=== PATIENT | male | born 1985 | race Two or more races ===

== ENCOUNTER 2024-05-14 09:17 | Outpatient (AMB) | payer SELFPAY ==
--- NOTE | 2024-05-14 09:21 | MHC.OFFWIV ---
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 Patient Tobacco Use Status: Never used Tobacco Allergies No Known Allergies Allergy (Verified 05/14/24 09:25) Do you need a note to return to daycare/school/sports/work: No HPI HPI Comments History of Present Illness Details Patient is a 39-year-old male here with a friend who is interpreting for him. They state he has had a lesion on his lower lip for 1 month. They state they have tried applying different kinds of ointments on it with no relief. They are not sure which ointments. They state that it never gets better and it has been in the same spot; it just crust and bleeds and then crust and bleeds. He states it is not painful nor is it itchy. He has never had anything like this in the past. Denies using tobacco, smoking or chewing. PFSH Social History Patient Tobacco Use Status: Never used Tobacco Review of Systems Const All systems reviewed & are unremarkable except as noted in HPI and below Physical Exam Vital Signs: Last Vital Signs Temp 98.6 F 05/14/24 09:23 Pulse 84 05/14/24 09:23 BP 140/90 H 05/14/24 09:23 Pulse Ox 97 05/14/24 09:23 Oxygen Delivery Method Room Air 05/14/24 09:23 BMI result Body Mass Index 30.4 Const General: cooperative, healthy appearing, comfortable, no acute distress and well developed Orientation/consciousness: patient oriented x3 Limitations: no limitations HEENT Head: Yes normal to inspection Ears: hearing grossly normal bilaterally General nose exam: Normal external nose present Face and sinus: Yes normal facial exam Mouth/tongue images: 1. 0.5cm raised, erythematous/white/black lesion actively bleeding when touched Eyes General: appearance normal, both eyes and all related structures Neck Neck: Yes normal visual inspection and Yes full ROM Resp Effort & Inspection: normal respiratory effort and able to speak in complete sentences Skin General skin exam: no rashes or lesions noted Neuro General: patient oriented x3 Extrem General: Yes normal to inspection Assessment & Plan Assessment & Plan (1) Lesion of lip: Code(s): K13.0 - Diseases of lips Plan: This does not appear to be a cold sore or a mucocelle. Will send derm referral. Plan see above Orders: Referrals Dermatology Referral K13.0 - Diseases of lips Coding Level of Care Code Est Pt Level 3 (70444) Diagnoses Lesion of lip K13.0
[2024-05-14 09:23] VITALS: BP 140/90; PULSE 84; TEMP 37; O2SAT 97; BMI 30.4
== END 2024-05-14 09:59 | disposition home or self-care (01) ==
PROVIDERS: PCP Nurse Practitioner Family; Visit Provider Physician Assistant
DX: K13.0 Diseases of lips (principal)
CPT/HCPCS: 99213

== ENCOUNTER 2024-08-06 11:43 | Outpatient (AMB) | payer OTHER, SELFPAY ==
[2024-08-06 11:47] VITALS: BP 122/80; PULSE 76; O2SAT 98; BMI 30.8
--- NOTE | 2024-08-06 11:47 | A.OFFPC_ITS ---
Vital Signs 08/06/24 11:47 Height 5 ft 11 in Weight 221 lb BMI 30.8 BP 122/80 Blood Pressure Location Rt brachial Position Sitting Pulse 76 Pulse Source Pulse Oximeter Pulse Oximetry (%) 98 Intake Visit Reasons: Est care HTN/discuss sleep study Intake Note: pt is here for establish care, would like referral for sleep study Specialist Physicians Required: Yes Specialist Physicians Language: Nigerian Information Interpreted: non-clinical & clinical Accompanied by: Self / Same As Patient Allergies No Known Allergies Allergy (Verified 08/06/24 11:48) Medication List - Last Reconciled 08/06/24 by DARY uHber No Known Home Meds Tobacco use date assessed: 08/06/24 Dental Screening Dental Screen Date: 08/06/24 Did you have a dental visit in the last 12 months?: Yes Did you have a dental problem in the last 6 months where you did not have access to dental care?: No Was dental information given to patient?: Patient has dentist HPI Est care HTN/discuss sleep study HPI Details New pt is here to establish care. 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 Pt's is accompanying him today. HTN: Blood pressure is stable today. Will have pt's monitor his BP at home. Will order labs. Denies chest pain, shortness of breath, headache, dizziness, and blurred vision. Pt reports an external lesion to his anus x3 months. He does report pain with defecation but no bleeding. ? hemorrhoid vs cystic lesion. Will send hydrocortisone cream. Will also refer to general surgery. Pt has a hx of elevated PSA. He has a family hx of prostate cancer (uncles). Will order PSA. Denies dribbling with urination, weak stream, and frequent nocturia. Pt has a hx of sleep apnea, will refer for sleep study. [facility] Surgical History No pertinent past surgical history Family History Mother Diabetes High blood pressure Father Diabetes High blood pressure Social History Housing: House Alcohol intake: never Patient Tobacco Use Status: Never used Tobacco e-Cigarette/Vaping Use: Never Used Second Hand Smoke Exposure: No service: No Current occupational status: employed and unemployed Current occupational exposures/hazards: No Cognitive needs: No Hearing needs: No Vision needs: No Questionnaire PHQ-9 Over the last 2 weeks, how often have you been bothered by any of the following problems? 1. Little interest or pleasure in doing things: not at all 2. Feeling down, depressed, or hopeless: not at all 3. Trouble falling or staying asleep, or sleeping too much: not at all 4. Feeling tired or having little energy: not at all 5. Poor appetite or overeating: not at all 6. Feeling bad about yourself - or that you are a failure or have let yourself or your family down: not at all 7. Trouble concentrating on things, such as reading the newspaper or watching television: not at all 8. Moving or speaking so slowly that other people could have noticed. Or the opposite - being so fidgety or restless that you have been moving around a lot more than usual: not at all 9. Thoughts that you would be better off or of hurting yourself in some way: not at all Total score: 0 Depression Screening Interpretation: Negative Depression Screening Done: Yes 61411 - PHQ-9 Billing: Yes Source: Developed by Drs. Donnie Sanchez, Josee Crisostomo, Jean Fernandez and colleagues, with an educational anamaria from [email or web address]. Thrive Questionnaire Date Thrive assessed: 08/06/24 I am a: Patient What is your living situation today?: I have a steady place to live Within the past 12 months, did the food you bought not last and you didn't have the money to get more?: Never true Within the past 12 months, did you worry whether your food would run out before you got money to buy more?: Never true Do you have trouble paying for medicines?: No Do you have trouble getting transportation to medical appointments?: No Do you have trouble paying your heating and electricity bill?: No Do you have trouble taking care of your child, family member or friend?: No Do you have trouble with day-to-day activities such as bathing, preparing meals, shopping, managing finances, etc.?: No Are you currently unemployed and looking for a job?: Yes Are you interested in more education?: I choose not to answer this question Please select the resources that you would like help with: None Currently or been in a relationship where the following occur: No concerns reported THRIVE Score: 0 AUDIT C Alcohol Use Questionnaire (AUDIT-C) 1. How often do you have a drink containing alcohol?: Never 3. How often do you have six or more drinks on one occasion?: Never Total Score: 0 Score Reviewed/Action Taken: Yes KARINA-7 AMB Questionnaire KARINA-7 Date KARINA - 7 assessed: 08/06/24 Feeling nervous, anxious, or on edge: 0 = Not at all Not being able to stop or control worryin = Not at all Worrying too much about different things: 0 = Not at all Trouble relaxin = Not at all Being so restless that it is hard to sit still: 0 = Not at all Becoming easily annoyed or irritable: 0 = Not at all Feeling afraid as if something awful might happen: 0 = Not at all Total KARINA-7 score (0-4 normal; 5-9 mild; 10-14 moderate; 15-21 severe): 0 Source: Developed by Drs. Donnie Sanchez, Josee Crisostomo, Jean Fernandez and colleagues, with an educational anamaria from [email or web address]. KARINA-7 Assessment Billing KARINA-7 Assessment Tool: KARINA-7 Assessment 84241 Review of Systems Const Reports as per HPI Physical exam (Primary Care) Vital Signs: Last Vital Signs Pulse 76 08/06/24 11:47 BP 122/80 08/06/24 11:47 Pulse Ox 98 08/06/24 11:47 BMI result Body Mass Index 30.8 Tobacco/Smoking Status: Tobacco use Status Tobacco use date assessed 08/06/24 08/06/24 11:49 Patient Tobacco Use Status Never used Tobacco 08/06/24 11:49 e-Cigarette/Vaping Use Never Used 08/06/24 11:49 PHQ-9: PHQ-9 Score PHQ-9: Total score 0 08/06/24 11:49 Depression Screening Interpretation: Negative Thrive Assessment: Date of Thrive Assessment Date Thrive assessed 08/06/24 08/06/24 11:49 Currently or been in a relationship where the following occur: No concerns reported Const General: cooperative Orientation/consciousness: patient oriented x3 Resp Effort & Inspection: normal respiratory effort Auscultation: clear to auscultation bilaterally Cardio Rate: regular rate Rhythm: regular rhythm Heart sounds: S1 normal heart sound present and S2 normal heart sound present GI Other: 9 o'clock position with ? large external hemorrhoid vs cystic lesion, flesh colored Neuro General: patient oriented x3 Psych Appearance: grossly normal Mental Status: mental status grossly normal Speech and movement: Normal speech and movement present Affect: normal affect Attitude: cooperative Thought process: Normal thought process present Thought content: Normal thought content present Insight: Good insight present (Psych) Judgement: Good judgement present (Psych) Coding Level of Care Code New Pt Level 3 (15458) Diagnoses HTN (hypertension) I10 Sleep apnea G47.30 Rectal lesion K62.9 Elevated prostate specific antigen (PSA) R97.20 Additional Codes KARINA-7 Assessment Billing - KARINA-7 Assessment Tool: KARINA-7 Assessment 66037 ([id number]) PHQ-9 - 47999 - PHQ-9 Billing: Yes ([id number]) Assessment & Plan Assessment & Plan (1) HTN (hypertension): Code(s): I10 - Essential (primary) hypertension Category: Medical Plan: Stable, labs ordered, pt's will take his BP at home (2) Sleep apnea: Code(s): G47.30 - Sleep apnea, unspecified Category: Medical Plan: Referred for sleep study (3) Rectal lesion: Code(s): K62.9 - Disease of anus and rectum, unspecified Category: Medical Plan: Hydrocortisone sent, referred to general surgery (4) Elevated prostate specific antigen (PSA): Code(s): R97.20 - Elevated prostate specific antigen [PSA] Category: Medical Plan: PSA ordered Plan The patient agreed to the use of a medical record retrieval specialist for this encounter. Scribed for DARY Dyson by jose alfredo Waters scribe, on 08/06/2024 at 12:45 EST. Orders: Orders Comprehensive [place]. Panel Fast Today I10 - Essential (primary) hypertension TSH reflex Free T4 Today I10 - Essential (primary) hypertension UA CC w/rflx Micro + Cult Today I10 - Essential (primary) hypertension Prostate Specific Antigen Scr Today R97.20 - Elevated prostate specific antigen [PSA] Complete Blood Count Auto Diff Today I10 - Essential (primary) hypertension Lipid Panel Today I10 - Essential (primary) hypertension Referrals Sleep Medicine Referral G47.30 - Sleep apnea, unspecified General Surgery Referral K62.9 - Disease of anus and rectum, unspecified Medications: New hydrocortisone 2.5% 1 appl NV BID-QID PRN 30 grams 0RF hemorrhoids
== END 2024-08-06 13:08 | disposition home or self-care (01) ==
PROVIDERS: PCP Nurse Practitioner Family; Visit Provider Nurse Practitioner Family
DX: I10 Essential (primary) hypertension (principal); G47.30 Sleep apnea, unspecified; K62.9 Disease of anus and rectum, unspecified; R97.20 Elevated prostate specific antigen [PSA]

== ENCOUNTER 2024-08-06 11:43 | Outpatient (REF) | payer OTHER, SELFPAY | END 2024-08-06 11:44 | disposition home or self-care (01) | LOC: HO.HMGCLDS 11:43 | PROVIDERS: PCP Nurse Practitioner Family; Visit Provider Nurse Practitioner Family | DX: I10 Essential (primary) hypertension (principal); G47.30 Sleep apnea, unspecified; K62.9 Disease of anus and rectum, unspecified; R97.20 Elevated prostate specific antigen [PSA] | CPT/HCPCS: 96127; 99202 ==

== ENCOUNTER 2024-08-07 10:37 | Outpatient (REF) | payer OTHER, SELFPAY ==
[2024-08-07 13:22] LABS: MANUAL DIFF FLAG NO
[2024-08-07 13:28] LABS: Appearance Urine Clear; Color Urine Yellow; Glucose Urine UA Negative (Negative); Leukocyte Esterase Urine Negative (Negative); Nitrite Urine Negative (Negative); PH 6.5 (5.0-9.0); Specific Gravity - Urine 1.015 (1.005-1.025); Urine Blood Negative (Negative); Urine Ketones Negative (Negative); Urine Protein Negative (Neg-Trace)
[2024-08-07 13:59] LABS: Basophils Percent Auto 0.4 % (0-2); Eosinophils Absolute Auto 0.3 X10*3/uL (0.0-0.4); Eosinophils Percent Auto 6.1 % (0-4); Hematocrit 46.6 % (42.0-52.0); Hemoglobin 16.1 g/dl (14.0-18.0); Imm Gran Abs Auto 0.01 X10*3/uL (0.00-0.03); Imm Gran Pct Auto 0.2 % (0.0-0.4); Lymphocytes Absolute Auto 2.1 X10*3/uL (1.2-4.9); Lymphocytes Percent Auto 42.9 % (20-40); Mean Corpuscular HGB Conc 34.5 g/dl (31.0-36.0); Mean Corpuscular Hemoglobin 29.8 pg (27.0-33.0); Mean Corpuscular Volume 86.3 fL (80.0-98.0); Mean Platelet Volume 9.7 fL (9.4-12.4); Monocytes Absolute Auto 0.9 X10*3/uL (0.1-1.2); Monocytes Percent Auto 18.4 % (2-11); Neutrophils Absolute Auto 1.5 x10*3/uL (2.0-8.3); Platelet Count 218 X10*3/uL (160-400); Red Cell Distribution Width 13.1 % (11.0-16.0); White Blood Count 4.8 X10*3/uL (4.8-10.8)
[2024-08-07 14:34] LABS: Albumin Level 4.5 g/dL (3.5-5.0); Alkaline Phosphatase 78 U/L (39-117); Anion Gap 8 (12-20); Aspartate Amino Transferase 28 U/L (5-37); Bilirubin Total 0.7 mg/dL (0.0-1.0); Blood Urea Nitrogen 9 mg/dL (9-16); Calcium 9.2 mg/dL (8.4-10.2); Carbon Dioxide 27 mmol/L (22-29); Chloride 105 mmol/L (96-108); Cholesterol 175 mg/dL (<200); Estimated Glomerular Filt Rate > 60; Glucose Fasting 96 mg/dL (60-99); HDL Cholesterol 29 mg/dL (>40); LDL Cholesterol Calculated 117 mg/dL (<100); Potassium 4.4 mmol/L (3.3-5.1); Sodium 136 mmol/L (135-145); TSH reflex Free T4 3.26 uIU/mL (0.32-4.0); Total Protein 7.5 g/dL (6.5-8.0); Triglycerides 148 mg/dL (<150)
[2024-08-07 15:21] LABS: Alanine Aminotransferase 38 U/L (0-40)
== END 2024-08-07 10:38 | disposition home or self-care (01) ==
LOC: HO.HMGCLDS 10:37
PROVIDERS: PCP Nurse Practitioner Family; Visit Provider Nurse Practitioner Family
DX: I10 Essential (primary) hypertension (principal); R97.20 Elevated prostate specific antigen [PSA]
CPT/HCPCS: 36415; 80053; 80061; 81003; 84153; 84443; 85025

== ENCOUNTER 2024-08-14 10:33 | Outpatient (AMB) | payer OTHER, SELFPAY ==
--- NOTE | 2024-08-14 10:38 | MHC.OFFVIS ---
Vital Signs 08/14/24 10:44 Height 5 ft 11 in Weight 220 lb BMI 30.7 BP 162/91 H Blood Pressure Location Rt brachial Position Sitting Pulse 03 L Intake Visit Reasons: Diseases of anus & rectum Intake Note: Patient referred by Dr. Oquendo for external hemorrhoids. Patient c/o: bothersome with BM. Warping Machine Operator Required: Yes Warping Machine Operator Language: Podiatric Assistant Services: Warping Machine Operator Present Warping Machine Operator Name: Kings Information Interpreted: non-clinical & clinical Accompanied by: spouse Ayaz Allergies No Known Allergies Allergy (Verified 08/14/24 10:43) HPI Comments Details: Patient presents with a significant other. He presents here with a 4 to five-month history of anorectal pain and swelling from what he describes to be a hemorrhoid. He has never had such problems before. His stool is occasionally constipated. He does strenuous activities. He has never had blood per rectum. He denies any anal receptive practice Chart was reviewed and patient evaluated [facility] Surgical History No pertinent past surgical history Family History Mother Diabetes High blood pressure Father Diabetes High blood pressure Social History (Updated 08/14/24 @ 10:44 by JESSICA Gray) Housing: House Alcohol intake: current Alcohol intake frequency: holidays/special occasions only Patient Tobacco Use Status: Never used Tobacco e-Cigarette/Vaping Use: Never Used Second Hand Smoke Exposure: No service: No Current occupational status: employed and unemployed Current occupational exposures/hazards: No Cognitive needs: No Hearing needs: No Vision needs: No Physical Exam Vital Signs: Last Vital Signs Pulse 03 L 08/14/24 10:44 BP 162/91 H 08/14/24 10:44 BMI result Body Mass Index 30.7 Const Other: Well-developed male Chest Other: Chest breath sounds bilaterally, HS 1 in 2 GI Other: Abdomen is soft, benign anorectal exam demonstrates a very large external hemorrhoid. Rectal exam was deferred secondary to patient was discomfort Assessment & Plan Assessment & Plan (1) Hemorrhoids: Code(s): K64.9 - Unspecified hemorrhoids Category: Surgical Plan I discussed with the patient therapeutic options which would including conservative therapy and topical agents or excision. Patient would like to have this removed/excised. Risks, benefits, and alternatives of hemorrhoidectomy were reviewed with the patient and included but not limited to bleeding, infection, recurrence, numbness, pain, scarring, anal incontinence and the patient wishes to proceed. All questions answered. Arrangements were made for this. Day prior he has been instructed to take a bottle of magnesium citrate so he will not need to have bowel movements with the few days postoperatively which will help alleviate his discomfort. Coding Level of Care Code New Pt Level 5 (53456) Diagnoses Hemorrhoids K64.9
[2024-08-14 10:44] VITALS: BP 162/91; PULSE 03; BMI 30.7
== END 2024-08-14 11:07 | disposition home or self-care (01) ==
PROVIDERS: PCP Nurse Practitioner Family; Referring Provider Nurse Practitioner Family; Visit Provider Surgery
DX: K64.9 Unspecified hemorrhoids (principal)
CPT/HCPCS: 99204

== ENCOUNTER → 2024-08-14 10:33 | Outpatient (BNVA) | payer OTHER, SELFPAY | PROVIDERS: PCP Nurse Practitioner Family; Referring Provider Nurse Practitioner Family; Visit Provider Surgery | DX: K64.9 Unspecified hemorrhoids (principal) | CPT/HCPCS: 99202 ==

== ENCOUNTER 2024-08-23 10:09 | Day surgery (SDC) | payer OTHER, SELFPAY ==
--- NOTE | 2024-08-22 10:19 | MHC.SHP ---
Pre-Procedural Eval Section A - 24 Hr Update-Section A only Date of Service: 08/23/24 The patient is an INPATIENT: No Changes since office visit: No Cold of Flu in the past 2 weeks, No New Medical Problems, No Changes in Medication and No Patient answered all questions Section B - Complete if H&P > 30 days Chief Complaint: Unspecified hemorrhoids Allergies: Allergies Allergy/AdvReac Type Severity Reaction Status Date / Time No Known Allergies Allergy Verified 08/14/24 10:43 Review of Systems Sugical H&P ROS: Negative: Constitution, Cardiovascular, Respiratory, Neurological, Psychiatric, Hem-Onc, Allergic/Immunologic, Gastrointestinal, Genitourinary, Musculoskeletal, Integumentary, Endocrine and Eyes/Ears/Nose/Throat Exam Surgical H&P Exam: Normal: HEENT, Normal: Heart, Normal: Lungs, Normal: Extremities, Normal: Abdomen, Normal: Skin and Normal: Neurological Plan I have reviewed the history and physical and performed a pertinent physical examination on my patient. No changes have occurred unless specified. Time Spent With Patient Time: Total time managing care of this patient today ____ minutes.
[2024-08-23 11:19] VITALS: BP 135/89; PULSE 82; RESP 14; TEMP 36.7; O2SAT 97
[2024-08-23] MEDS: Lactated Ringers 1,000 ML 100 ML IVCONT (11:33)
--- NOTE | 2024-08-23 11:45 | HO.ANESPROP2 ---
Documented by User: Leigha Bardales NP 08/21/24 15:16 HPI - Anesthesia Eval Consult details Narrative: 39yo M for Hemorrhoidectomy PMFSH Active Problems Active Problems: All Active Problems Hemorrhoids (Acute) Abnormal CBC (Acute) Elevated prostate specific antigen (PSA) (Acute) Rectal lesion (Acute) Sleep apnea (Acute) HTN (hypertension) (Acute) Lesion of lip (Acute) Past Medical History Medical History (Updated 08/21/24 @ 15:15 by Leigha Bardales NP) Sleep apnea HTN (hypertension) Family History Family History Mother Diabetes High blood pressure Father Diabetes High blood pressure Surgical History Surgical History (Updated 08/14/24 @ 11:21 by Shree Andrea MD) No pertinent past surgical history Social History Social History (Updated 08/14/24 @ 10:44 by JESSICA Gray) Housing: House Are you a primary urgent care nurse practitioner to a significant other at home: No Do you presently have visiting nurse or other home services: No Alcohol intake: current Alcohol intake frequency: does not drink Patient Tobacco Use Status: Never used Tobacco e-Cigarette/Vaping Use: Never Used Second Hand Smoke Exposure: No Use of substances other than those prescribed or required for medical reasons: No Have you been hit, kicked, punched, or otherwise hurt by someone within the past year? If so, by whom?: No Are you DNR?: No Advance Directives: No Advance Directives Information Provided: Yes Nutrition Risks: No Nutritional Risk Poor oral hygiene: No service: No Current occupational status: employed and unemployed Current occupational exposures/hazards: No Cognitive needs: No Hearing needs: No Vision needs: No Meds Allergies Allergy/AdvReac Type Severity Reaction Status Date / Time No Known Allergies Allergy Verified 08/23/24 11:16 Exam Pertinent Lab Results Pertinent Lab Results: Laboratory Tests 08/07/24 10:40 WBC 4.8 Hgb 16.1 Hct 46.6 Plt Count 218 Sodium 136 Potassium 4.4 Chloride 105 Carbon Dioxide 27 BUN 9 Creatinine 0.88 Documented by User: Lauren Jha DO 08/23/24 11:50 PMFSH Past Medical History Medical History (Updated 08/21/24 @ 15:15 by Leigha Bardales NP) Sleep apnea HTN (hypertension) Family History Family History Mother Diabetes High blood pressure Father Diabetes High blood pressure Family history of problems with anesthesia: No Surgical History Surgical History (Updated 08/14/24 @ 11:21 by Shree Andrea MD) No pertinent past surgical history History of Problems with Anesthesia: No (never had surgery) Social History Social History (Updated 08/14/24 @ 10:44 by JESSICA Gray) Housing: House Are you a primary urgent care nurse practitioner to a significant other at home: No Do you presently have visiting nurse or other home services: No Alcohol intake: current Alcohol intake frequency: does not drink Patient Tobacco Use Status: Never used Tobacco e-Cigarette/Vaping Use: Never Used Second Hand Smoke Exposure: No Use of substances other than those prescribed or required for medical reasons: No Have you been hit, kicked, punched, or otherwise hurt by someone within the past year? If so, by whom?: No Are you DNR?: No Advance Directives: No Advance Directives Information Provided: Yes Nutrition Risks: No Nutritional Risk Poor oral hygiene: No service: No Current occupational status: employed and unemployed Current occupational exposures/hazards: No Cognitive needs: No Hearing needs: No Vision needs: No Meds Allergies Allergy/AdvReac Type Severity Reaction Status Date / Time No Known Allergies Allergy Verified 08/23/24 11:16 Exam Exam Date and Time: 08/23/24 1145 Height,Weight and Vital Signs: Height 5 ft 11 in Weight 97.522 kg Vital Signs Temperature 98.1 F 08/23/24 11:19 Pulse Rate 82 08/23/24 11:19 Respiratory Rate 14 08/23/24 11:19 Blood Pressure 135/89 08/23/24 11:19 Pulse Oximetry 97 08/23/24 11:19 Oxygen Delivery Method Room Air 08/23/24 11:19 Temperature 98.1 F 08/23/24 11:19 Pulse Rate 82 08/23/24 11:19 Respiratory Rate 14 08/23/24 11:19 Blood Pressure 135/89 08/23/24 11:19 Pulse Oximetry 97 08/23/24 11:19 Oxygen Delivery Method Room Air 08/23/24 11:19 Airway Mallampati Class: I TM Dist: >3cm Neck ROM: Full Loose/Missing/Broken Teeth: Yes (several missing molars) Heart: S1S2 Lungs: CTAB Assessment and Plan Assessment Anesthesia Assessment: Anesthesia Plan Discussed and Chart Reviewed Final Anesthetic Review Family History of Problems with Anesthesia: No History of Problems with Anesthesia: No (never had surgery) NPO: Yes ASA Class: II Final Preanesthetic Review: No Changes in Pt Med Stat, Meds/Allgs Chart Reviewed, Consent Obtained/Reviewed (wind turbine mechanic at bedside for translation) and Anes Risks/Benef Reviewed Patient Risk: Low Procedure Risk: Low Anesthetic Plan Anesthetic Plan: MAC: and Agree w/ Assess. and Plan Disposition: Standard PACU
--- NOTE | 2024-08-23 12:21 | P.OP_ITS ---
Operative Note Operative Note Date of Service: 08/23/24 Narrative: Preoperative diagnosis: [] Symptomatic enlarging hemorrhoids Postop diagnosis: [] The same Procedure [] hemorrhoidectomy Surgeon: [] Emre Appointment Coordinator: [] Type of Anesthesia: MAC Indication for surgery: [] In lithotomy position large thrombosed/clot filled hemorrhoids at the 3, 7 and 11:00 o'clock positions respectively uneventfully excised using ligature device. Findings: [] Patient brought to the operating room, placed on operative table supine position, after an adequate level of MAC anesthesia was induced, anorectal area was prepped and draped in usual sterile fashion. Patient underwent infiltration of the 3 primary hemorrhoidal areas to be excised with a 1% lidocaine/0.5% Marcaine. Each was sequentially grasped, and double firing of ligature device transected and sent to pathology. Wounds were irrigated, secured hemostasis, and a Gelfoam impregnated with topical lidocaine plug was placed followed by dressing and mesh panties. Sponge, needle, and instrument counts were reported correct. Patient tolerated the procedure well and emerged from anesthesia stable condition. EBL minimal
[2024-08-23 12:23] VITALS: BP 121/76; PULSE 89; RESP 18; TEMP 36.1; O2SAT 95
[2024-08-23 12:30] VITALS: BP 119/81; PULSE 86; RESP 18; O2SAT 96
[2024-08-23 12:50] VITALS: BP 119/81; PULSE 86; RESP 18; O2SAT 96
[2024-08-23 13:05] VITALS: BP 139/96; PULSE 91; RESP 18; O2SAT 97
[2024-08-23 13:20] VITALS: BP 142/98; PULSE 89; RESP 18; TEMP 36.6; O2SAT 98
--- NOTE | 2024-08-24 12:52 | P.OP_ITS ---
Operative Note Operative Note Date of Service: 08/23/24 Narrative: Preoperative diagnosis: [] Symptomatic Postop diagnosis: [] Procedure [] Surgeon: [] Bushwalking Guide: [] Type of Anesthesia: [] Indication for surgery: [] Findings: []
== END 2024-08-23 13:55 | disposition home or self-care (01) ==
PROVIDERS: PCP Nurse Practitioner Family; Visit Provider Surgery
PROC: (CPT 46320; principal; 2024-08-23 12:50)
DX: K64.8 Other hemorrhoids (principal); K64.5 Perianal venous thrombosis; K62.9 Disease of anus and rectum, unspecified
CPT/HCPCS: 46320 ×3; 88304; J0131; J0690; J1100; J1885; J2003; J2250; J2405; J2704; J2795; J3010

== ENCOUNTER → 2024-08-23 10:09 | Outpatient (BNV) | payer OTHER, SELFPAY | PROVIDERS: PCP Nurse Practitioner Family; Visit Provider Surgery | DX: K64.9 Unspecified hemorrhoids (principal) | CPT/HCPCS: 46250 ==

== ENCOUNTER 2024-08-29 09:38 | Outpatient (AMB) | payer OTHER, SELFPAY ==
--- NOTE | 2024-08-29 10:06 | MHC.OFFWIV ---
Intake Vital Signs 08/29/24 10:07 Height 5 ft 11 in Weight 219 lb 4 oz BMI 30.6 BP 110/74 Blood Pressure Location Lt brachial Position Sitting Pulse 95 Pulse Source Pulse Oximeter Temp 97.1 F Temp Source Temporal Artery Scan Pulse Oximetry (%) 98 Oxygen Delivery Method Room Air Intake Visit Reasons: EP-hemorrhoid's sx 08/23, having pain & bleeding Intake Note: Pt presents to the office today for pain and unable to pass any stools and is having trouble urinating since his hemorrhoid surgery on 08/23/24. Pt denies any painful urination. Patient Tobacco Use Status: Never used Tobacco Tooth Cutter Clutch Name: Shakira([id number]) Allergies No Known Allergies Allergy (Verified 08/29/24 10:11) Medication List - Last Reconciled 08/29/24 by Inderjit Alvarez MD hydrocodone-acetaminophen 5-325 mg 1 tab PO Q4-6H PRN hydrocortisone 2.5% 1 appl [place] BID-QID PRN HPI EP-hemorrhoid's sx 08/23, having pain & bleeding HPI Details Chief Complaint The patient presents with postoperative anal pain, bleeding, constipation, and urinary dysurea following hemorrhoidectomy. History of Present Illness The patient is a 39-year-old male presenting with postoperative complications following a hemorrhoidectomy performed on August 23 at [facility]. Since the surgery, he has been experiencing significant anal pain, especially at night, which necessitates the use of pain medication to manage. Despite this, the effectiveness of the medication is limited, and the pain persists. He also reports persistent bleeding from the surgical site and has had difficulty with bowel movement since the operation. Constipation remains an issue despite taking Colace prescribed medications intended to alleviate it. Plan For postoperative anal pain and constipation, I will continue the current pain management strategy while possibly adjusting medications to provide better control and improve bowel motility. Stool softener changed to Senokot S1-2 tablets every night Regarding post-surgical bleeding, I will monitor for signs of excessive bleeding and assess whether adjustment in current treatment is necessary, advising the patient to maintain close follow-up. On examination he has only slight pinkish discharge. I have ordered a urinalysis to rule out urinary tract infection as a potential cause. Based on results, further evaluation or treatment may be necessary. The patient is advised to undergo a urine test next door as part of today's visit. Lastly, I will coordinate with the surgical team at [facility] to facilitate follow-up care and reassessment by the operating surgeon, ensuring continuity of postoperative management and addressing any surgical complications identified. Patient was notified he has appointment with the surgeon on of this month at 10:45 Patient speaks only Swiss, all information was taking with the help of professional test equipment mechanic. 45 minutes spent in care of this patient [facility] Medical History Sleep apnea HTN (hypertension) Surgical History No pertinent past surgical history Family History Mother Diabetes High blood pressure Father Diabetes High blood pressure Social History Housing: House Are you a primary rn care manager to a significant other at home: No Do you presently have visiting nurse or other home services: No Alcohol intake: current Alcohol intake frequency: does not drink Patient Tobacco Use Status: Never used Tobacco e-Cigarette/Vaping Use: Never Used Second Hand Smoke Exposure: No service: No Current occupational status: employed and unemployed Current occupational exposures/hazards: No Cognitive needs: No Hearing needs: No Vision needs: No Review of Systems Const Denies chills and Denies fever(s) ENT Denies epistaxis and Denies nasal discharge Card Denies chest pain Resp Denies chest congestion, Denies cough and Denies hemoptysis GI Denies nausea Skin/Breast Denies rash Neuro Reports no additional complaints Psych Reports no additional complaints Endo Reports no additional complaints Physical Exam Vital Signs: Last Vital Signs Temp 97.1 F 08/29/24 10:07 Pulse 95 08/29/24 10:07 BP 110/74 08/29/24 10:07 Pulse Ox 98 08/29/24 10:07 Oxygen Delivery Method Room Air 08/29/24 10:07 BMI result Body Mass Index 30.6 Const General: cooperative, comfortable and no acute distress Orientation/consciousness: patient oriented x3 HEENT Head: Yes normocephalic Eyes General: appearance normal, both eyes and all related structures Neck Other: Supple Neck: Yes supple Resp Effort & Inspection: normal respiratory effort, no cough and no stridor Other: Rectal exam revealed slight pinkish discharge only Skin General skin exam: turgor normal Neuro Other: Motor sensory intact General: patient oriented x3, tone normal and moves all extremities Psych Other: Normal effect, speech clear Assessment & Plan Assessment & Plan (1) Postoperative pain: Code(s): G89.18 - Other acute postprocedural pain (2) Rectal discharge: Code(s): R19.8 - Other specified symptoms and signs involving the digestive system and abdomen (3) Pain management: Code(s): R52 - Pain, unspecified (4) Dysuria: Code(s): R30.0 - Dysuria (5) Pain associated with defecation: Code(s): R19.8 - Other specified symptoms and signs involving the digestive system and abdomen Plan Chief Complaint The patient presents with postoperative anal pain, bleeding, constipation, and urinary dysurea following hemorrhoidectomy. History of Present Illness The patient is a 39-year-old male presenting with postoperative complications following a hemorrhoidectomy performed on August 23 at [facility]. Since the surgery, he has been experiencing significant anal pain, especially at night, which necessitates the use of pain medication to manage. Despite this, the effectiveness of the medication is limited, and the pain persists. He also reports persistent bleeding from the surgical site and has had difficulty with bowel movement since the operation. Constipation remains an issue despite taking Colace prescribed medications intended to alleviate it. Plan For postoperative anal pain and constipation, I will continue the current pain management strategy while possibly adjusting medications to provide better control and improve bowel motility. Stool softener changed to Senokot S1-2 tablets every night Regarding post-surgical bleeding, I will monitor for signs of excessive bleeding and assess whether adjustment in current treatment is necessary, advising the patient to maintain close follow-up. On examination he has only slight pinkish discharge. I have ordered a urinalysis to rule out urinary tract infection as a potential cause. Based on results, further evaluation or treatment may be necessary. The patient is advised to undergo a urine test next door as part of today's visit. Lastly, I will coordinate with the surgical team at [facility] to facilitate follow-up care and reassessment by the operating surgeon, ensuring continuity of postoperative management and addressing any surgical complications identified. Patient was notified he has appointment with the surgeon on of this month at 10:45 Patient speaks only Swiss, all information was taking with the help of professional test equipment mechanic. 45 minutes spent in care of this patient Orders: Orders UA CC w/rflx Micro + Cult Today R30.0 - Dysuria Medications: New lidocaine 5% 1 appl topical TID PRN 50 grams 0RF Rectal pain sennosides-docusate sodium 8.6-50 mg (Senokot-S) 2 tab-caps (2 x 8.6-50 mg) PO BEDTIME 20 tabs 0RF constipation 10 days K59.03 - Drug induced constipation, T40.2X5A - Adverse effect of other opioids, initial encounter Refilled hydrocodone-acetaminophen 5-325 mg Partial Fill upon patient request. 1 tab PO Q4-6H PRN 30 tabs 0RF pain Coding Level of Care Code Est Pt Level 5 (25516) Diagnoses Postoperative pain G89.18 Rectal discharge R19.8 Pain management R52 Dysuria R30.0 Pain associated with defecation R19.8
[2024-08-29 10:07] VITALS: BP 110/74; PULSE 95; TEMP 36.2; O2SAT 98; BMI 30.6
== END 2024-08-29 10:45 | disposition home or self-care (01) ==
PROVIDERS: PCP Nurse Practitioner Family; Visit Provider Internal Medicine
DX: R30.0 Dysuria (principal); G89.18 Other acute postprocedural pain; R19.8 Other specified symptoms and signs involving the digestive system and abdomen

== ENCOUNTER 2024-08-30 18:38 | Emergency (ER) | payer OTHER, SELFPAY ==
--- NOTE | ~2024-08-30 | XR_ITS ---
EXAMINATION: XR ABDOMEN KUB CLINICAL INDICATION: pain COMPARISON: None available. TECHNIQUE: 3 views of the abdomen. FINDINGS: The bowel gas pattern is normal with no evidence of ileus or obstruction. No unusual soft tissue calcifications are noted. There are age-indeterminate fractures involving the posterior aspects of the right 11th and 12th ribs. XR/XR KUB IMPRESSION: Nonobstructive bowel gas pattern. There are age-indeterminate fractures involving the posterior aspects of the right 11th and 12th ribs. Electronically signed by: Oleg Skaggs DO 08/30/2024 09:24 PM EST
[2024-08-30 19:28] VITALS: BP 150/100; PULSE 113; RESP 16; TEMP 36.4; O2SAT 98; BMI 28.9
--- NOTE | 2024-08-30 22:18 | ED_ITS ---
HPI - Abdominal Pain General Chief Complaint: Abdominal Pain Stated Complaint: ? constipated ,rectal pain Time Seen by Provider: 08/30/24 22:17 Source: patient Mode of arrival: ambulatory Limitations: no limitations History of Present Illness ED Provider: HPI narrative: Patient is status post hemorrhoidectomy on 08/23 complaining of pain in the rectal area since then and not able to move his bowels took milk of magnesia and senna. No abdominal pain no nausea no vomiting complaining of increased pain in the rectal area was taking hydrocodone before which he finished Related Data Previous Rx's ?Medication ?Instructions ?Recorded hydrocortisone 2.5 % topical cream 1 appl [place] BID-QID PRN hemorrhoids 08/06/24 with perineal applicator #30 grams hydrocodone 5 mg-acetaminophen 325 1 tab PO Q4-6H PRN pain #30 tabs 08/29/24 mg tablet lidocaine 5 % topical ointment 1 appl topical TID PRN Rectal pain 08/29/24 #50 grams sennosides 8.6 mg-docusate sodium 2 tab-cap (2 x 8.6-50 mg) PO 08/29/24 50 mg tablet (Senokot-S) BEDTIME constipation 10 days #20 tabs lidocaine 5 % topical ointment 1 appl topical TID PRN pain #30 08/30/24 grams oxycodone 5 mg tablet 5 mg PO Q6H PRN pain #20 tabs 08/30/24 polyethylene glycol 3350 17 17 g PO DAILY PRN constipation 08/30/24 gram/dose oral powder (Miralax) #119 grams Allergies Allergy/AdvReac Type Severity Reaction Status Date / Time No Known Allergies Allergy Verified 08/30/24 19:31 Review of Systems Review of Systems Yes all other systems are reviewed and are negative [facility] Past Medical History Medical History Sleep apnea HTN (hypertension) Surgical History No pertinent past surgical history Family History Family History Mother Diabetes High blood pressure Father Diabetes High blood pressure Social History Social History Housing: House Are you a primary managed care nurse to a significant other at home: No Do you presently have visiting nurse or other home services: No Alcohol intake: current Alcohol intake frequency: does not drink Patient Tobacco Use Status: Never used Tobacco e-Cigarette/Vaping Use: Never Used Second Hand Smoke Exposure: No Advance Directives: No Advance Directives Information Provided: Yes service: No Current occupational status: employed and unemployed Current occupational exposures/hazards: No Cognitive needs: No Hearing needs: No Vision needs: No Physical Exam ED Vital Signs: Vital Signs - 24 hr 08/30/24 19:28 Temperature 97.5 F Pulse Rate 113 H Respiratory Rate 16 Blood Pressure 150/100 H Pulse Oximetry 98 Oxygen Delivery Method Room Air BMI result Body Mass Index 28.9 Appearance: Alert. Oriented X3. No acute distress. ENT: Pharynx normal. Oral Mucosa moist Neck: Normal inspection. Neck supple. CVS: Normal heart rate and rhythm. Pulses normal. Respiratory: No respiratory distress. Equal air entry bilateral, no wheezing/rales/rhonchi Abdomen: Soft and nontender. Bowel sounds are present, no mass palpable, no CVA tenderness rectal: Postop changes Skin: Skin warm and dry. Normal skin color. Normal skin turgor. Extremities: No lower extremity edema. No calf tenderness Neuro: Oriented X 3. No motor deficit. Medical Decision Making Medical Decision Making MDM Narrative: Patient's rectal pain postop lidocaine was applied patient is feeling much better now will discharge patient home advised to take stool softener and follow up with surgeon Medications Administered Discontinued Medications Generic Name Dose Route Start Last Admin Trade Name Vijayq PRN Reason Stop Dose Admin Bisacodyl 10 mg 08/30/24 22:35 08/30/24 23:06 Bisacodyl 5 Mg Tablet.Dr PO 08/30/24 22:36 10 mg ONCE ONE Administration Lidocaine HCl 10 ml 08/30/24 22:19 08/30/24 23:07 Lidocaine Hcl 2 % Urojet 10 Ml Jel.Pf.Constance TOPICAL 08/30/24 22:20 10 ml ONCE ONE Administration Magnesium Hydroxide 30 ml 08/30/24 22:36 08/30/24 23:07 Milk Of Magnesia 30 Ml Oral.Susp PO 08/30/24 22:37 30 ml ONCE ONE Administration Discharge Plan Discharge Clinical Impression: Hemorrhoids Patient Disposition: Home, Self-Care Instructions: Hemorrhoids (ED) Additional Instructions: Continue to use lidocaine 5% ointment 3 times a day for local pain in the rectal area after surgery take pain medication as prescribed Stool softener as advised Follow up with your surgeon Prescriptions: New lidocaine 5 % ointment 1 appl topical TID PRN (Reason: pain) Qty: 30 0RF polyethylene glycol 3350 [Miralax] 17 gram/dose powder 17 g PO DAILY PRN (Reason: constipation) Qty: 119 0RF oxycodone 5 mg tablet 5 mg PO Q6H PRN (Reason: pain) Qty: 20 0RF Rx Instructions: Partial Fill upon patient request. No Action hydrocortisone 2.5 % cream with perineal applicator 1 appl [place] BID-QID PRN (Reason: hemorrhoids) Qty: 30 0RF lidocaine 5 % ointment 1 appl topical TID PRN (Reason: Rectal pain) Qty: 50 0RF sennosides-docusate sodium [Senokot-S] 8.6-50 mg tablet 2 tab-cap PO BEDTIME 10 Days Qty: 20 0RF hydrocodone-acetaminophen 5-325 mg tablet 1 tab PO Q4-6H PRN (Reason: pain) Qty: 30 0RF Rx Instructions: Partial Fill upon patient request. Print Language: Swedish
[2024-08-30] MEDS: bisacodyL 5 MG TABLET.DR 10 MG PO (23:06)
[2024-08-30] MEDS: Milk of Magnesia 30 ML ORAL.SUSP PO (23:07)
[2024-08-30] MEDS: Lidocaine HCl 2 % Urojet 10 ML JEL.PF.APP TOPICAL (23:07)
== END 2024-08-31 23:52 | disposition home or self-care (01) ==
PROVIDERS: Emergency Provider Internal Medicine; PCP Nurse Practitioner Family
DX: K64.9 Unspecified hemorrhoids (principal)
CPT/HCPCS: 74018; 99281; 99283

== ENCOUNTER 2024-09-06 09:50 | Outpatient (AMB) | payer OTHER, SELFPAY ==
--- NOTE | 2024-09-06 09:52 | A.OFFVIS_ITS ---
Vital Signs 09/06/24 09:56 Height 5 ft 11 in Weight 213 lb BMI 29.7 BP 154/98 H Blood Pressure Location Rt brachial Position Sitting Pulse 94 Intake Visit Reasons: Had surgery, in alot of pain Intake Note: Patient here as an urgent appointment. HX of hemorrhoidectomy on 08-23-2024. Patient c/o: severe pain. Rx meds are not stron enough. Home Health Care Case Manager Required: Yes Home Health Care Case Manager Name: Lizzy LOPEZ Accompanied by: Self / Same As Patient Allergies No Known Allergies Allergy (Verified 09/06/24 10:00) HPI HPI Had surgery, in alot of pain: Details: He had undergone hemorrhoidectomy with the Dr. Andrea on 08/23/2024. He had called the office to be seen today because of his postop pain. He says that he has had severe pain since the surgery. He went to the ER last week. He is running out of oxycodone. He denies any fever. He says his pain is worse when he has bowel movements. [facility] Medical History Sleep apnea HTN (hypertension) Surgical History Status post hemorrhoidectomy No pertinent past surgical history Family History Mother Diabetes High blood pressure Father Diabetes High blood pressure Social History Housing: House Are you a primary acute care nurse to a significant other at home: No Do you presently have visiting nurse or other home services: No Alcohol intake: current Alcohol intake frequency: does not drink Patient Tobacco Use Status: Never used Tobacco e-Cigarette/Vaping Use: Never Used Second Hand Smoke Exposure: No service: No Current occupational status: employed and unemployed Current occupational exposures/hazards: No Cognitive needs: No Hearing needs: No Vision needs: No Review of Systems Const Denies chills and Denies fever(s) Card Denies chest pain Resp Denies cough Physical Exam Vital Signs: Last Vital Signs Pulse 94 09/06/24 09:56 BP 154/98 H 09/06/24 09:56 BMI result Body Mass Index 29.7 Const Other: Complains of pain General: no acute distress Resp Effort & Inspection: normal respiratory effort GI Other: Rectal exam shows skin separation on the hemorrhoidectomy sites, 1 residual hemorrhoidal column appears to be swollen Assessment & Plan Assessment & Plan (1) Status post hemorrhoidectomy: Code(s): Z98.890 - Other specified postprocedural states; Z87.19 - Personal history of other diseases of the digestive system Category: Surgical Plan: He had undergone hemorrhoidectomy with Dr. Andrea last 08/23/2024. He is complaining of postop pain. Examination does reveal that the hemorrhoidectomy sites on the perianal skin have some skin separation. There is on so 1 hemorrhoidal column that is edematous and tender I instructed him to do Sitz baths as often she can at home. I will prescribe him oxycodone as well as ibuprofen. I told him to take Colace twice a day and stop the senna. He has a follow up with Dr. Andrea next week so I emphasized to him that this is important. Coding Level of Care Code Global (07593) Diagnoses Status post hemorrhoidectomy Z98.890; Z87.19
[2024-09-06 09:56] VITALS: BP 154/98; PULSE 94; BMI 29.7
== END 2024-09-06 10:13 | disposition home or self-care (01) ==
PROVIDERS: PCP Nurse Practitioner Family; Visit Provider Surgery
DX: Z98.890 Other specified postprocedural states (principal); Z87.19 Personal history of other diseases of the digestive system
CPT/HCPCS: 99024

== ENCOUNTER → 2024-09-06 09:50 | Outpatient (BNVA) | payer OTHER, SELFPAY | PROVIDERS: PCP Nurse Practitioner Family; Visit Provider Surgery | DX: Z48.815 Encounter for surgical aftercare following surgery on the digestive system (principal); Z87.19 Personal history of other diseases of the digestive system; Z98.890 Other specified postprocedural states | CPT/HCPCS: 99212 ==

== ENCOUNTER 2024-09-10 10:17 | Outpatient (AMB) | payer OTHER, SELFPAY ==
--- NOTE | 2024-09-10 10:22 | MHC.OFFVIS ---
Intake Visit Reasons: s/p Hemorrhoidectomy Intake Note: Patient here s/p hemorrhoidectomy. Had urgent appointment with Dr. Ni on 09-06-24. Patient c/o: pain taking oxycodone. Patient still with painful BM. Vba Developer Required: Yes Vba Developer Name: Holly [id number] Accompanied by: Family/Other Allergies No Known Allergies Allergy (Verified 09/10/24 10:21) Medication List - Last Reconciled 09/10/24 by Shree Andrea MD hydrocodone-acetaminophen 5-325 mg 1 tab PO Q4-6H PRN hydrocortisone 2.5% 1 appl [place] BID-QID PRN ibuprofen 600 mg PO TID PRN lidocaine 5% 1 appl topical TID PRN lidocaine 5% 1 appl topical TID PRN oxycodone 5 mg PO Q6H PRN oxycodone 5 mg PO Q6H PRN polyethylene glycol 3350 (Miralax) 17 grams PO DAILY PRN sennosides-docusate sodium 8.6-50 mg (Senokot-S) 2 tab-caps (2 x 8.6-50 mg) PO BEDTIME 10 days HPI Comments Details: Patient presents with a significant other follow-up. Aside from incisional discomfort she is doing well. He is tolerating his diet patient is having bowel habits. He is slowly increasing his activity level. [facility] Medical History Sleep apnea HTN (hypertension) Surgical History Status post hemorrhoidectomy No pertinent past surgical history Family History Mother Diabetes High blood pressure Father Diabetes High blood pressure Social History Housing: House Are you a primary home care administrator to a significant other at home: No Do you presently have visiting nurse or other home services: No Alcohol intake: current Alcohol intake frequency: does not drink Patient Tobacco Use Status: Never used Tobacco e-Cigarette/Vaping Use: Never Used Second Hand Smoke Exposure: No service: No Current occupational status: employed and unemployed Current occupational exposures/hazards: No Cognitive needs: No Hearing needs: No Vision needs: No Physical Exam GI Other: Abdomen is soft. Interrupted wounds healing uneventfully. Assessment & Plan Assessment & Plan (1) Status post hemorrhoidectomy: Code(s): Z98.890 - Other specified postprocedural states; Z87.19 - Personal history of other diseases of the digestive system Category: Medical Plan Patient has been given a renewal of his analgesics as well as Motrin, continue local wound instructions, and will see me in a few weeks' time for follow-up or p.r.n.. All questions answered Medications: New oxycodone Partial Fill upon patient request. 5 mg PO Q8H PRN 30 tabs 0RF pain ibuprofen 800 mg PO Q8H PRN 30 tabs 0RF pain Coding Level of Care Code Global (69888) Diagnoses Status post hemorrhoidectomy Z98.890; Z87.19
== END 2024-09-10 10:55 | disposition home or self-care (01) ==
PROVIDERS: PCP Nurse Practitioner Family; Visit Provider Surgery
DX: Z98.890 Other specified postprocedural states (principal); Z87.19 Personal history of other diseases of the digestive system
CPT/HCPCS: 99024

== ENCOUNTER → 2024-09-10 10:17 | Outpatient (BNVA) | payer OTHER, MEDICAID, SELFPAY | PROVIDERS: PCP Nurse Practitioner Family; Visit Provider Surgery | DX: Z98.890 Other specified postprocedural states (principal); Z87.19 Personal history of other diseases of the digestive system | CPT/HCPCS: 99212 ==

== ENCOUNTER 2024-10-15 09:25 | Outpatient (AMB) | payer OTHER, SELFPAY ==
--- NOTE | 2024-10-15 09:29 | A.OFFVIS_ITS ---
Intake Visit Reasons: s/p hemorrhoidectomy Intake Note: Patient here s/p hemorrhoidectomy. Patient c/o: still very painful with BM. Denies constipation. Mental Hygienist Required: No Accompanied by: Self / Same As Patient Allergies No Known Allergies Allergy (Verified 10/15/24 09:30) Medication List - Last Reconciled 10/15/24 by Shree Andrea MD hydrocortisone 2.5% 1 appl [place] BID-QID PRN ibuprofen 600 mg PO TID PRN ibuprofen 800 mg PO Q8H PRN ibuprofen 800 mg PO Q8H PRN lidocaine 5% 1 appl topical TID PRN lidocaine 5% 1 appl topical TID PRN polyethylene glycol 3350 (Miralax) 17 grams PO DAILY PRN sennosides-docusate sodium 8.6-50 mg (Senokot-S) 2 tab-caps (2 x 8.6-50 mg) PO BEDTIME 10 days HPI Comments Details: Aside from incisional discomfort, patient was doing well. He is starting a diet. He is having regular bowel habits. He is occasionally constipated with the narcotics. He is willing to try Motrin. [facility] Medical History Sleep apnea HTN (hypertension) Surgical History Status post hemorrhoidectomy No pertinent past surgical history Family History Mother Diabetes High blood pressure Father Diabetes High blood pressure Social History Housing: House Are you a primary child care to a significant other at home: No Do you presently have visiting nurse or other home services: No Alcohol intake: current Alcohol intake frequency: does not drink Patient Tobacco Use Status: Never used Tobacco e-Cigarette/Vaping Use: Never Used Second Hand Smoke Exposure: No service: No Current occupational status: employed and unemployed Current occupational exposures/hazards: No Cognitive needs: No Hearing needs: No Vision needs: No Physical Exam GI Other: Abdomen is soft. Anorectal wounds healing very well Assessment & Plan Assessment & Plan (1) Status post hemorrhoidectomy: Code(s): Z98.890 - Other specified postprocedural states; Z87.19 - Personal history of other diseases of the digestive system Category: Medical Plan Patient was continue local wound care and will be given a script for Motrin. He will otherwise follow-up p.r.n.. All questions answered Medications: New ibuprofen 800 mg PO Q8H PRN 30 tabs 0RF pain Coding Level of Care Code Global (15873) Diagnoses Status post hemorrhoidectomy Z98.890; Z87.19
== END 2024-10-15 09:33 | disposition home or self-care (01) ==
LOC: HO.HGS 09:25
PROVIDERS: PCP Nurse Practitioner Family; Visit Provider Surgery
DX: Z98.890 Other specified postprocedural states (principal); Z87.19 Personal history of other diseases of the digestive system
CPT/HCPCS: 99024

== ENCOUNTER → 2024-10-15 09:25 | Outpatient (BNVA) | payer OTHER, SELFPAY | PROVIDERS: PCP Nurse Practitioner Family; Visit Provider Surgery | DX: Z87.19 Personal history of other diseases of the digestive system (principal); Z98.890 Other specified postprocedural states | CPT/HCPCS: 99212 ==

== ENCOUNTER 2025-02-05 11:17 | Outpatient (AMB) | payer OTHER, MEDICAID, SELFPAY ==
--- NOTE | 2025-02-05 11:21 | MHC.PC.OV ---
Vital Signs 02/05/25 11:24 Height 5 ft 11 in Weight 219 lb BMI 30.5 BP 130/80 Blood Pressure Location Rt brachial Position Sitting Pulse 74 Pulse Source Pulse Oximeter Temp 98.6 F Temp Source Oral Pulse Oximetry (%) 97 Oxygen Delivery Method Room Air Intake Visit Reasons: 6 months f/up Income Auditor Required: Yes Income Auditor Language: Swedish Information Interpreted: non-clinical & clinical Accompanied by: Self / Same As Patient Allergies No Known Allergies Allergy (Verified 02/05/25 11:22) Tobacco use date assessed: 02/05/25 Dental Screening Dental Screen Date: 02/05/25 Did you have a dental visit in the last 12 months?: No Did you have a dental problem in the last 6 months where you did not have access to dental care?: No Was dental information given to patient?: Yes HPI 6 months f/up HPI Details Chief Complaint The patient presents for a generalized follow-up regarding asthma and allergies. History of Present Illness The patient is a 39-year-old male presenting with a history of asthma and allergies. He reports childhood asthma with a re-emergence of wheezing bilaterally in the lungs, although this is not a constant issue, present around allergy season. His allergies are significant, necessitating adjustments in his management plan. He is currently on cetirizine 20mg, which will be increased due to symptom severity (20mg bid). Additionally, he reports having cervical neck pain that is ongoing and non-radiating. There is no specific event linked to its onset or exacerbation, and he denies any neurological involvement. Social History - Assisted by his for translation during medical visits - Family status indicates presence of a spouse Health Maintenance Review of Systems - Respiratory: Reports wheezing bilaterally - Allergic/Immunologic: Reports significant allergies - Musculoskeletal: Reports cervical neck pain -denies any fevers, chills Physical Exam General: Cooperative, healthy appearing, comfortable, no acute distress and well developed Orientation: Patient oriented x3 Limitations: No limitations Head: Normal to inspection Ears: Hearing grossly normal bilaterally Nose: Normal external nose present Face and sinus: Normal facial exam Eyes: Appearance normal, both eyes and all related structures Neck: Normal visual inspection and Yes full ROM, reports cervical neck pain, does not radiate. increase in cervical neck pain with chin tucks and raises. neg spurlings test, no pain with neck flexion, turning head side to side. Respiratory: scattered slight wheezing noted bilaterally, moving air bilat Cardiovascular: Regular rate and rhythm. Normal S1 and S2 GI: Normal to inspection. Soft to palpation and nontender Skin: No rashes or lesions noted Neuro: Patient oriented x3 Extremities: Normal to inspection Results Plan I have decided to conduct pulmonary function tests and a chest x-ray to evaluate the patient's respiratory status better and will refer him to a acquisition marketing manager. The patient's cetirizine dosage will be increased to twice daily, and he will be given an albuterol inhaler for use as needed. A new prescription for Symbicort is provided with instructions for use and maintenance of oral hygiene. Regarding the cervical neck pain, a cervical x-ray has been ordered to investigate further, and depending on the results, a referral for physical therapy might be necessary. Additionally, I will run a series of lab tests to further investigate his symptoms. He was instructed to seek emergency care should his wheezing or symptoms worsen significantly. Discussion Notes During our discussion, I informed the patient and his about the plan to perform pulmonary function tests and referred them to a acquisition marketing manager to comprehensively understand his asthma status. I detailed the risks and benefits of increasing cetirizine and initiating Symbicort, explaining the importance of oral hygiene after inhaler use to prevent complications. We discussed the rationale for obtaining a cervical x-ray due to his persistent neck pain and the potential for physical therapy once results are obtained. The patient was educated on signs and symptoms that would necessitate immediate emergency care, such as a significant increase in wheezing or difficulty in breathing. Throughout the discussion, I ensured the patient comprehended the proposed management plan. Patient Instructions - Take cetirizine 20 mg twice a day - Use albuterol inhaler as needed for wheezing - Use Symbicort inhaler daily and rinse mouth after use - Seek emergency care if wheezing or breathing difficulty worsens - Undergo the proposed PFT testing and chest x-ray, referring to pulmonary - Understand the need for a cervical neck x-ray - Follow up for further instructions based on test results [facility] Medical History Sleep apnea HTN (hypertension) Surgical History Status post hemorrhoidectomy No pertinent past surgical history Family History Mother Diabetes High blood pressure Father Diabetes High blood pressure Social History Housing: House Are you a primary associate director career services to a significant other at home: No Do you presently have visiting nurse or other home services: No Alcohol intake: current Alcohol intake frequency: does not drink Patient Tobacco Use Status: Never used Tobacco e-Cigarette/Vaping Use: Never Used Second Hand Smoke Exposure: No service: No Current occupational status: employed and unemployed Current occupational exposures/hazards: No Cognitive needs: No Hearing needs: No Vision needs: No Questionnaire PHQ-9 Over the last 2 weeks, how often have you been bothered by any of the following problems? 1. Little interest or pleasure in doing things: not at all 2. Feeling down, depressed, or hopeless: not at all 3. Trouble falling or staying asleep, or sleeping too much: not at all 4. Feeling tired or having little energy: not at all 5. Poor appetite or overeating: not at all 6. Feeling bad about yourself - or that you are a failure or have let yourself or your family down: not at all 7. Trouble concentrating on things, such as reading the newspaper or watching television: not at all 8. Moving or speaking so slowly that other people could have noticed. Or the opposite - being so fidgety or restless that you have been moving around a lot more than usual: not at all 9. Thoughts that you would be better off or of hurting yourself in some way: not at all Total score: 0 Depression Screening Interpretation: Negative Depression Screening Done: Yes 36820 - PHQ-9 Billing: Yes Source: Developed by Drs. Donnie Sanchez, Josee Crisostomo, Jean Fernandez and colleagues, with an educational anamaria from [employer]. Thrive Questionnaire Date Thrive assessed: 02/05/25 I am a: Patient What is your living situation today?: I have a steady place to live Within the past 12 months, did the food you bought not last and you didn't have the money to get more?: Never true Within the past 12 months, did you worry whether your food would run out before you got money to buy more?: Never true Do you have trouble paying for medicines?: I choose not to answer this question Do you have trouble getting transportation to medical appointments?: No Do you have trouble paying your heating and electricity bill?: No Do you have trouble taking care of your child, family member or friend?: No Do you have trouble with day-to-day activities such as bathing, preparing meals, shopping, managing finances, etc.?: No Are you currently unemployed and looking for a job?: I choose not to answer this question Are you interested in more education?: I choose not to answer this question Please select the resources that you would like help with: None Currently or been in a relationship where the following occur: No concerns reported THRIVE Score: 0 AUDIT C Alcohol Use Questionnaire (AUDIT-C) 1. How often do you have a drink containing alcohol?: Monthly or less 2. How many drinks containing alcohol do you have on a typical day when you are drinking?: 1 or 2 3. How often do you have six or more drinks on one occasion?: Never Total Score: 1 Score Reviewed/Action Taken: Yes KARINA-7 AMB Questionnaire KARINA-7 Date KARINA - 7 assessed: 02/05/25 Feeling nervous, anxious, or on edge: 0 = Not at all Not being able to stop or control worryin = Not at all Worrying too much about different things: 0 = Not at all Trouble relaxin = Not at all Being so restless that it is hard to sit still: 0 = Not at all Becoming easily annoyed or irritable: 0 = Not at all Feeling afraid as if something awful might happen: 0 = Not at all Total KARINA-7 score (0-4 normal; 5-9 mild; 10-14 moderate; 15-21 severe): 0 Source: Developed by Drs. Donnie Sanchez, Josee Crisostomo, Jean Fernandez and colleagues, with an educational anamaria from [employer]. KARINA-7 Assessment Billing KARINA-7 Assessment Tool: KARINA-7 Assessment 13689 Physical exam (Primary Care) Vital Signs: Last Vital Signs Temp 98.6 F 02/05/25 11:24 Pulse 74 02/05/25 11:24 BP 130/80 02/05/25 11:24 Pulse Ox 97 02/05/25 11:24 Oxygen Delivery Method Room Air 02/05/25 11:24 BMI result Body Mass Index 30.5 Tobacco/Smoking Status: Tobacco use Status Tobacco use date assessed 02/05/25 02/05/25 11:25 Patient Tobacco Use Status Never used Tobacco 02/05/25 11:25 e-Cigarette/Vaping Use Never Used 02/05/25 11:25 PHQ-9: PHQ-9 Score PHQ-9: Total score 0 02/05/25 11:37 Depression Screening Interpretation: Negative Thrive Assessment: Date of Thrive Assessment Date Thrive assessed 02/05/25 02/05/25 11:25 Currently or been in a relationship where the following occur: No concerns reported Coding Level of Care Code Est Pt Level 4 (19594) Diagnoses Cervical neck pain with evidence of disc disease M50.90 History of asthma Z87.09 Wheezing R06.2 Additional Codes KARINA-7 Assessment Billing - KARINA-7 Assessment Tool: KARINA-7 Assessment 32265 ([id number]) PHQ-9 - 10407 - PHQ-9 Billing: Yes ([id number]) Assessment & Plan Assessment & Plan (1) Cervical neck pain with evidence of disc disease: Code(s): M50.90 - Cervical disc disorder, unspecified, unspecified cervical region Category: Medical (2) History of asthma: Code(s): Z87.09 - Personal history of other diseases of the respiratory system Category: Medical (3) Wheezing: Code(s): R06.2 - Wheezing Category: Medical Plan . Orders: Orders PFT pulmonary function test Today Z87.09 - Personal history of other diseases of the respiratory system Immunoglobulin E Today R06.2 - Wheezing, Z87.09 - Personal history of other diseases of the respiratory system XR chest 2V Today R06.2 - Wheezing, Z87.09 - Personal history of other diseases of the respiratory system XR cervical spine 2V Today M50.90 - Cervical disc disorder, unspecified, unspecified cervical region Resp Allergy Profile Region I Today R06.2 - Wheezing, Z87.09 - Personal history of other diseases of the respiratory system Referrals Pulmonology Referral Z87.09 - Personal history of other diseases of the respiratory system Medications: New albuterol sulfate 90 mcg/actuation (Ventolin HFA) 1 puff inhalation QID PRN 8.5 grams 1RF shortness of breath or wheezing budesonide-formoterol 80-4.5 mcg/actuation (Symbicort) 2 puffs inhalation BID 10.2 grams 1RF budesonide-formoterol 80-4.5 mcg/actuation (Symbicort) please rinse mouth out after use 2 puffs inhalation BID 10.2 grams 1RF
[2025-02-05 11:24] VITALS: BP 130/80; PULSE 74; TEMP 37; O2SAT 97; BMI 30.5
== END 2025-02-05 12:06 | disposition home or self-care (01) ==
LOC: HO.HMCC 11:18
PROVIDERS: PCP Nurse Practitioner Family; Visit Provider Nurse Practitioner Family
DX: M50.90 Cervical disc disorder, unspecified, unspecified cervical region (principal); Z87.09 Personal history of other diseases of the respiratory system; R06.2 Wheezing

== ENCOUNTER 2025-02-05 11:17 | Outpatient (REF) | payer OTHER, SELFPAY ==
--- NOTE | ~2025-02-05 | XR_ITS ---
EXAMINATION: XR CHEST CLINICAL INFORMATION: R06.2 - Wheezing COMPARISON: None available. TECHNIQUE: 2 views of the chest were obtained. FINDINGS: No consolidation, pleural effusion or pneumothorax. No hyperinflation. Cardiomediastinal silhouette size is normal. Osseous structures are intact. XR/XR chest 2V IMPRESSION: No acute airspace disease. Electronically signed by: Davi Castro MD 02/05/2025 12:44 PM EDT
--- NOTE | ~2025-02-05 | XR_ITS ---
EXAMINATION: XR CERVICAL SPINE CLINICAL INFORMATION: M50.90 - Cervical disc disorder, unspecified, unspecified cervical region COMPARISON: None available. TECHNIQUE: AP and lateral views of the cervical spine were obtained. FINDINGS: Craniocervical junction is intact. No acute cortical disruption or gross malalignment. No lytic or blastic lesion. Upper airways patent.. XR/XR cervical spine 2V IMPRESSION: No acute fracture or listhesis. Electronically signed by: Davi Castro MD 02/05/2025 12:45 PM EDT
== END 2025-02-05 11:18 | disposition home or self-care (01) ==
LOC: HO.HMGCX 11:17
PROVIDERS: PCP Nurse Practitioner Family; Visit Provider Nurse Practitioner Family
DX: J45.909 Unspecified asthma, uncomplicated (principal); M50.90 Cervical disc disorder, unspecified, unspecified cervical region; Z91.09 Other allergy status, other than to drugs and biological substances; Z87.09 Personal history of other diseases of the respiratory system; Z79.899 Other long term (current) drug therapy
CPT/HCPCS: 71046; 72040; 96127; 99212

== ENCOUNTER → 2025-02-05 12:12 | Outpatient (BNV) | payer OTHER, SELFPAY | PROVIDERS: PCP Nurse Practitioner Family; Visit Provider Radiology Diagnostic Radiology | DX: M50.90 Cervical disc disorder, unspecified, unspecified cervical region (principal); R06.2 Wheezing | CPT/HCPCS: 71046; 72040 ==

== ENCOUNTER 2025-04-10 10:21 | Outpatient (AMB) | payer OTHER, SELFPAY ==
--- NOTE | 2025-04-10 10:56 | A.OFFVIS_ITS ---
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 Pt has a hx of sleep apnea. No hx of sleep studies. does snore. Geoscience Professor Required: Yes Geoscience Professor Services: Geoscience Professor Present Geoscience Professor Name: Carley [id number] Information Interpreted: non-clinical & clinical Accompanied by: Spouse Allergies No Known Allergies Allergy (Verified 04/10/25 11:03) HPI Comments Details: 40 year old [place]alander speaking male referred to us for SAI by his pcp. His is here and helps with history. 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 Childhood h/o asthma, snores at night, and has witnessed apneas then gasps for air. He does not like using his inhalers, albuterol and symbicort are provided by his PCP. He goes to sleep at 11pm to midnight, with 1-2 bathroom breaks and 2-3x diarrhea at night if diet is poor. He has acid reflux, managed by diet. He has headaches 2-3x /month and can last the entire day, mild 4/10 pain, upon neck lateral rotation he notices pain. RLS numbness, tingling, moves his feet alot at night. Lower back pain +, denies injury, and falls. Mood is irritable, easily overwhelmed. Memory is stable. His mother passed at 67 year old due to T2DM HTN and CKD. FH + Dad T2DM, HTN RA. Does not smoke, do MJ, edibles and or drink alcohol. [facility] Medical History Sleep apnea HTN (hypertension) Surgical History Status post hemorrhoidectomy No pertinent past surgical history Family History Mother Diabetes High blood pressure Father Diabetes High blood pressure Social History Housing: House Are you a primary home health care respiratory therapist to a significant other at home: No Do you presently have visiting nurse or other home services: No Alcohol intake: current Alcohol intake frequency: does not drink Patient Tobacco Use Status: Never used Tobacco e-Cigarette/Vaping Use: Never Used Second Hand Smoke Exposure: No service: No Current occupational status: employed and unemployed Current occupational exposures/hazards: No Cognitive needs: No Hearing needs: No Vision needs: No Physical Exam Vital Signs: Last Vital Signs Pulse 67 04/10/25 10:57 Pulse Ox 98 04/10/25 10:57 Oxygen Delivery Method Room Air 04/10/25 10:57 BMI result Body Mass Index 30.3 Const General: cooperative, comfortable and no acute distress Nutritional Appearance: average body habitus Orientation/consciousness: patient oriented x3 HEENT Face and sinus: Yes face symmetric Teeth and gingiva: other ([place] score of 3) Eyes Pupils: Equal, round and reactive pupils present Neck Neck: Yes full ROM Resp Effort & Inspection: normal respiratory effort and able to speak in complete sentences Neuro General: patient oriented x3 and moves all extremities Cranial nerves: Yes Facial sensation intact/muscles of mastication intact, Yes Equal, round and reactive pupils present, Yes Normal accommodation reflex present, Yes Normal facial strength present, Yes Midline tongue present, Yes Ability to bilaterally rotate head present and Yes Ability to bilaterally elevate shoulders present Cognition (Neuro): normal cognition Gait exam (Neuro): Normal gait present Motor exam (neuro): 5/5 motor strength present throughout and Normal motor muscle tone present throughout Psych Appearance: grossly normal Mental Status: mental status grossly normal Speech and movement: Other speech and movement exam findings present (Psych) (language barrier) Thought process: Normal thought process present Thought content: Normal thought content present Assessment & Plan Assessment & Plan (1) Excessive daytime sleepiness: Code(s): G47.19 - Other hypersomnia Category: Medical (2) Mood complaints in sleep disorder: Code(s): G47.9 - Sleep disorder, unspecified Category: Medical (3) Loud snoring: Code(s): R06.83 - Snoring Category: Medical Plan HST r/o sai due to excessive daytime fatigue. Labs r/o nutrititional deficiencies and mood irritability. Asthma per pcp, continue Ventolin PRN and Symbicort as needed for symptoms. Headaches will monitor F/u in 3 months Orders: Orders RT home sleep study Today G47.19 - Other hypersomnia Vitamin D 25-OH Total Today G47.19 - Other hypersomnia Homocysteine Today G47.19 - Other hypersomnia, G47.9 - Sleep disorder, unspecified, R53.83 - Other fatigue Magnesium Today G47.19 - Other hypersomnia Vitamin B12 and Folate Today G47.19 - Other hypersomnia TSH reflex Free T4 Today G47.19 - Other hypersomnia Ferritin Today G47.19 - Other hypersomnia Complete Blood Count no Diff Today G47.19 - Other hypersomnia Comprehensive Met. Panel Today G47.19 - Other hypersomnia Hemoglobin A1c Today G47.19 - Other hypersomnia Methylmalonic Acid Today G47.19 - Other hypersomnia, G47.9 - Sleep disorder, unspecified, R53.83 - Other fatigue Patient Instructions: Sleep Hygiene provided: Establish scheduled bedtime and wake time to help regulate the circadian rhythm and balance the release of pituitary hormones. Sleep in a dark room, temperatures below 68 degrees, and no devices n bed. Limit caffeinated products 6 hours prior to bed, and limit fluids 2-4 hours prior to bed. Gentle night yoga, diffusing essential oils, and playing soft music can be relaxing. Coding Level of Care Code New Pt Level 4 (16602) Diagnoses Excessive daytime sleepiness G47.19 Mood complaints in sleep disorder G47.9 Loud snoring R06.83 Time Spent (min) 30 Comment evaluation Sleep Questionnaire Difficulty falling asleep: No Difficulty staying asleep?: No Number of arousals: 1-3 Snoring: Yes Witnessed apneas: Yes Gasping arousals: Yes (environmentally triggered by pollen) Nocturia: No GERD: Yes Vivid dreams: No Acting out dreams: No Abnormal behavior in sleep: No Abnormal movements in sleep: No Morning headaches: Yes (1-2 x) Excessive daytime sleepiness: Yes Daytime naps: Yes (2-3 hours) Restless legs: Yes Hallucinations: No Sleep paralysis: Yes Drop attacks: No Sleep Study: No CPAP: No
[2025-04-10 10:57] VITALS: PULSE 67; O2SAT 98; BMI 30.3
== END 2025-04-10 11:58 | disposition home or self-care (01) ==
LOC: HO.HSMS 10:22
PROVIDERS: Absent Provider Physician Assistant Medical; PCP Nurse Practitioner Family; Visit Provider Physician Assistant Medical
DX: G47.19 Other hypersomnia (principal); G47.9 Sleep disorder, unspecified; R06.83 Snoring
CPT/HCPCS: 99204

== ENCOUNTER → 2025-04-10 10:21 | Outpatient (BNVA) | payer OTHER, SELFPAY | PROVIDERS: Absent Provider Physician Assistant Medical; PCP Nurse Practitioner Family; Visit Provider Physician Assistant Medical | DX: G47.19 Other hypersomnia (principal); G47.9 Sleep disorder, unspecified; R06.83 Snoring; R53.83 Other fatigue | CPT/HCPCS: 99202 ==

== ENCOUNTER 2025-04-12 11:01 | Outpatient (REF) | payer OTHER, SELFPAY | END 2025-04-12 11:02 | disposition home or self-care (01) | LOC: HO.HMGCLDS 11:01 | PROVIDERS: PCP Nurse Practitioner Family; Visit Provider Physician Assistant Medical | DX: Z13.89 Encounter for screening for other disorder (principal) ==

== ENCOUNTER 2025-04-16 09:36 | Outpatient (REF) | payer OTHER, SELFPAY ==
[2025-04-16 10:22] LABS: Hematocrit 46.4 % (42.0-52.0); Hemoglobin 16.4 g/dl (14.0-18.0); Mean Corpuscular HGB Conc 35.3 g/dl (31.0-36.0); Mean Corpuscular Hemoglobin 30.1 pg (27.0-33.0); Mean Corpuscular Volume 85.3 fL (80.0-98.0); NRBC Abs Auto 0.000 X10*3/uL (0.0-0.012); NRBC Pct Auto 0.0 /100WBC (0.0-0.2); Platelet Count 201 X10*3/uL (160-400); Red Blood Count 5.44 X10*6/uL (4.60-5.80); White Blood Count 4.1 X10*3/uL (4.8-10.8)
[2025-04-16 10:23] LABS: Hemoglobin A1C 149.3177 umol/L; Total Hemoglobin (HGBA1C) 4216.8891 umol/L
[2025-04-16 11:10] LABS: Alanine Aminotransferase 39 U/L (0-40); Albumin Level 5.1 g/dL (3.5-5.0); Alkaline Phosphatase 78 U/L (39-117); Anion Gap 10 (12-20); Aspartate Amino Transferase 32 U/L (5-37); Blood Urea Nitrogen 12 mg/dL (9-16); Calcium 9.2 mg/dL (8.4-10.2); Carbon Dioxide 25 mmol/L (22-29); Chloride 111 mmol/L (96-108); Estimated Glomerular Filt Rate > 60; Ferritin 104 ng/mL (20-250); Magnesium 2.1 mg/dL (1.6-2.6); Potassium 3.8 mmol/L (3.3-5.1); Sodium 142 mmol/L (135-145); Total Protein 7.7 g/dL (6.5-8.0)
[2025-04-16 11:21] LABS: Folate 7.6 ng/mL (> or = 4.0); Vitamin B12 158 pg/mL (200-900)
[2025-04-17 23:03] LABS: Class Alternaria alternata 0; Class Aspergillus fumigatus 0/1; Class Bermuda Grass 0/1; Class Birch 5; Class Cat Dander 0/1; Class Cladosporium herbarum 0/1; Class Cockroach 0/1; Class Common Ragweed 1; Class Cottonwood 0/1; Class Derm. pterony 3; Class Dermatophagoides farinae 3; Class Dog Dander 0/1; Class Elm 1; Class Maple Box Elder 0/1; Class Mountain Cedar 0/1; Class Mouse Urine Protein 0; Class Mugwort 0; Class Oak 4; Class Penicillium crysogenum 0; Class Rough Pigweed 0/1; Class Sheep Sorrel 0; Class Sycamore 0/1; Class Timothy Grass 0; Class Walnut Tree 1; Class White Ash 0/1; Class White Mulberry 0; D002 - IgE D farinae 5.81 kU/L; E001 - IgE Cat Dander 0.12 kU/L; E005 - IgE Dog Dander 0.20 kU/L; G006 - IgE Timothy Grass <0.10 kU/L; I006-IgE Cockroach, German 0.11 kU/L; M002 - IgE Cladosporium herbar 0.21 kU/L; M003 - IgE Aspergillus fumigat 0.25 kU/L; M006 - IgE Alternaria alternat <0.10 kU/L; T001 IgE Maple/Box Elder 0.16 kU/L; T006 - IgE Cedar, Mountain 0.10 kU/L; T007 - IgE Oak, White 29.50 kU/L; T008 IgE Elm, American 0.65 kU/L; T010 - IgE Walnut 0.39 kU/L; T011 - IgE Maple Leaf Sycamore 0.31 kU/L; T014 - IgE Cottonwood 0.18 kU/L; T015 - IgE Ash, White 0.12 kU/L; T070 - IgE White Mulberry <0.10 kU/L; W001 - IgE Ragweed, Short 0.42 kU/L; W006 - IgE Mugwort <0.10 kU/L; W014 IgE Pigweed, Common 0.11 kU/L; W018 IgE Sheep Sorrel <0.10 kU/L
== END 2025-04-16 09:37 | disposition home or self-care (01) ==
LOC: HO.LAB 09:36
PROVIDERS: PCP Nurse Practitioner Family; Visit Provider Physician Assistant Medical
DX: R53.83 Other fatigue (principal); G47.9 Sleep disorder, unspecified; G47.19 Other hypersomnia; Z87.09 Personal history of other diseases of the respiratory system; R06.2 Wheezing
CPT/HCPCS: 36415; 80053; 82306; 82607; 82728; 82746; 82785; 83036; 83090; 83735; 83921; 84443; 85027; 86003

== ENCOUNTER 2025-05-02 13:24 | Outpatient (REF) | payer OTHER, SELFPAY ==
--- NOTE | 2025-05-02 13:29 | PFT_ITS ---
Flows: FEV1: 102 % of predicted at 4.40 L FVC: 90 % of predicted at 4.87 L FEV1/FVC: 90 % Bronchodilator response: Absent Volumes: Total lung capacity: 83 % of predicted at 6.18 L Residual volume: 85 % of predicted at 1.42 L Slow vital capacity: 83 % of predicted at 4.75 L Expiratory reserve volume: 43 % of predicted at 0.71 L Diffusion capacity: Normal Impression: No obstructive or restrictive ventilatory defects. No bronchodilator response. Decreased expiratory reserve volume suggests extrathoracic restriction likely secondary to abdominal obesity. MTDD
[2025-05-02 14:06] VITALS: PULSE 100; O2SAT 97
== END 2025-05-02 13:25 | disposition home or self-care (01) ==
LOC: HO.RESP 13:24
PROVIDERS: PCP Nurse Practitioner Family; Visit Provider Nurse Practitioner Family
DX: Z87.09 Personal history of other diseases of the respiratory system (principal)
CPT/HCPCS: 94010; 94640; 94727; 94729; 99202

== ENCOUNTER 2025-05-02 14:02 | Outpatient (AMB) | payer OTHER, SELFPAY ==
[2025-05-02 14:02] VITALS: BP 110/82; PULSE 102; O2SAT 97; BMI 30.3
--- NOTE | 2025-05-02 14:02 | A.OFFVIS_ITS ---
Vital Signs 05/02/25 14:02 Height 5 ft 11 in Weight 217 lb BMI 30.3 BP 110/82 Blood Pressure Location Lt brachial Position Sitting Pulse 102 H Pulse Source Pulse Oximeter Pulse Oximetry (%) 97 Oxygen Delivery Method Room Air Intake Visit Reasons: asthma Accompanied by: Self / Same As Patient Allergies No Known Allergies Allergy (Verified 05/02/25 14:04) HPI Comments Details: The patient is here for pulmonary evaluation. The patient is a 40-year-old gentleman with known history of asthma and allergies who presents with worsening respiratory symptoms. The patient states that he was in his usual state health until the springtime when he started developing worsening shortness of breath ch est tightness wheezing nasal congestion. He did have allergy testing with significant allergies to environmental allergies and pollen. In addition to dust mites. The patient is placed on Symbicort and also a rescue inhaler. But then spring finish in the summer he has been a lot better. He has not had any issues with his breathing denies any coughing or wheezing. He did undergo pulmonary function studies today demonstrating normal lung mechanics. No evidence of any obstruction or reversibility. Indeed the patient has significant nasal congestion still. Although his allergy symptoms are better. The patient has been taking Afrin and I explained to the patient that most likely the saphenous causing a worsening rebound nasal congestion that is resulting in his ongoing symptoms. Because of the nasal congestion the patient also has been having issues with snoring. His [place] score is elevated 08/12. And he is going to undergo a sleep study at this time. Will follow-up with the results of the sleep study. From a pulmonary standpoint the patient is doing well seems like he needs primarily he is medicines more during the beginning of the spring season to try to minimize on the respiratory manifestations in the nasal congestion. But right now he is doing good and he can continue using the Symbicort but just as needed for now. Will follow-up before the worst season. In the meantime he is going to start using the Afrin I will send him some additional nasal sprays to the pharmacy. [facility] Medical History (Updated 05/05/25 @ 20:12 by Messi Acosta MD) Chronic allergic rhinitis Asthma Sleep apnea HTN (hypertension) Surgical History Status post hemorrhoidectomy No pertinent past surgical history Family History Mother Diabetes High blood pressure Father Diabetes High blood pressure Social History Housing: House Are you a primary geriatric personal care aide to a significant other at home: No Do you presently have visiting nurse or other home services: No Alcohol intake: current Alcohol intake frequency: does not drink Patient Tobacco Use Status: Never used Tobacco e-Cigarette/Vaping Use: Never Used Second Hand Smoke Exposure: No service: No Current occupational status: employed and unemployed Current occupational exposures/hazards: No Cognitive needs: No Hearing needs: No Vision needs: No Review of Systems Const Denies chills, Reports daytime sleepiness, Denies fever(s), Reports snoring and Reports stops breathing during sleep ENT Denies epistaxis, Reports nasal congestion, Reports nasal discharge and Reports nasal obstruction Card Denies chest pain Resp Denies chest congestion, Denies cough, Denies hemoptysis, Reports snoring and Denies wheezing GI Denies nausea Musc Reports no additional complaints Skin/Breast Denies rash Neuro Reports no additional complaints Psych Reports no additional complaints Endo Reports no additional complaints Remi/Lymph Reports no additional complaints Aller/Immun Denies wheezing Physical Exam Vital Signs: Last Vital Signs Pulse 102 H 05/02/25 14:02 BP 110/82 05/02/25 14:02 Pulse Ox 97 05/02/25 14:02 Oxygen Delivery Method Room Air 05/02/25 14:02 BMI result Body Mass Index 30.3 Const General: cooperative, comfortable and no acute distress Orientation/consciousness: patient oriented x3 HEENT General nose exam: Abnormal mucous membranes and turbinates present erythematous Face and sinus: Yes face symmetric Teeth and gingiva: other ([place] score of 3) Neck Neck: Yes full ROM Chest Chest palpation & inspection: normal inspection of the chest Resp Effort & Inspection: normal respiratory effort and able to speak in complete sentences Auscultation: clear to auscultation bilaterally Cardio Heart sounds: S1 normal heart sound present and S2 normal heart sound present GI Palpation (GI): Soft to palpation Skin General skin exam: no rashes or lesions noted Neuro General: patient oriented x3 and moves all extremities Extrem General: Yes no clubbing, cyanosis or edema Psych Appearance: grossly normal Results Reviewed Results Reviewed: PFTs-no obstruction/restriction, normal DLCO: normal study Assessment & Plan Assessment & Plan (1) Asthma: Code(s): J45.909 - Unspecified asthma, uncomplicated Category: Medical Qualifiers: Asthma severity: mild Asthma persistence: intermittent Asthma complication type: uncomplicated Qualified Code(s): J45.20 - Mild intermittent asthma, uncomplicated (2) Chronic allergic rhinitis: Code(s): J30.9 - Allergic rhinitis, unspecified Category: Medical (3) Excessive daytime sleepiness: Code(s): G47.19 - Other hypersomnia Category: Medical Plan continue symbicort, ok to use as needed stop Afrin start fluticasone nasal spray start Ipratropium nasal spray as needed PSG F/U 6-8 months Medications: New ipratropium bromide administer into each nostril 2 sprays intranasal TID PRN 15 mL 6RF allergy symptoms fluticasone propionate 50 mcg/actuation 2 sprays intranasal DAILY 15.8 mL 11RF 30 days J31.0 - Chronic rhinitis Coding Level of Care Code New Pt Level 4 (94348) Diagnoses Mild intermittent asthma without complication J45.20 Asthma severity: mild Asthma persistence: intermittent Asthma complication type: uncomplicated Chronic allergic rhinitis J30.9 Excessive daytime sleepiness G47.19 Time Spent (min) 35
== END 2025-05-02 14:33 | disposition home or self-care (01) ==
LOC: HO.HPS 14:03
PROVIDERS: PCP Nurse Practitioner Family; Visit Provider Hospitalist
DX: J45.20 Mild intermittent asthma, uncomplicated (principal); J30.9 Allergic rhinitis, unspecified; G47.19 Other hypersomnia
CPT/HCPCS: 99204

== ENCOUNTER 2025-07-30 12:22 | Outpatient (AMB) | payer OTHER, SELFPAY ==
--- NOTE | 2025-07-30 12:25 | A.OFFPC_ITS ---
Vital Signs 07/30/25 12:26 Height 5 ft 11 in Weight 227 lb BMI 31.7 BP 120/82 Blood Pressure Location Lt brachial Position Sitting Respiration 16 Pulse 84 Pulse Source Pulse Oximeter Pulse Oximetry (%) 97 Oxygen Delivery Method Room Air Intake Visit Reasons: Annual PE Quality Assurance Associate Required: No Accompanied by: Self / Same As Patient Allergies No Known Allergies Allergy (Verified 07/30/25 12:28) Medication List - Last Reconciled 07/30/25 by Jules Oquendo [facility]- albuterol sulfate 90 mcg/actuation (Ventolin HFA) 1 puff inhalation QID PRN budesonide-formoterol 80-4.5 mcg/actuation (Symbicort) 2 puffs inhalation BID cetirizine (Zyrtec) 10 mg PO DAILY PRN fluticasone propionate 50 mcg/actuation 2 sprays intranasal DAILY 30 days ipratropium bromide 2 sprays intranasal TID PRN mecobalamin (vitamin B12) 1,000 mcg PO DAILY montelukast 10 mg PO BEDTIME 30 days Tobacco use date assessed: 07/30/25 Dental Screening Dental Screen Date: 07/30/25 Did you have a dental visit in the last 12 months?: Yes Did you have a dental problem in the last 6 months where you did not have access to dental care?: No Was dental information given to patient?: Patient has dentist [facility] Medical History Chronic allergic rhinitis Asthma Sleep apnea HTN (hypertension) Surgical History Status post hemorrhoidectomy No pertinent past surgical history Family History Mother Diabetes High blood pressure Father Diabetes High blood pressure Social History Housing: House Are you a primary family member caretaker to a significant other at home: No Do you presently have visiting nurse or other home services: No Alcohol intake: current Alcohol intake frequency: does not drink Patient Tobacco Use Status: Never used Tobacco e-Cigarette/Vaping Use: Never Used Second Hand Smoke Exposure: No service: No Current occupational status: employed and unemployed Current occupational exposures/hazards: No Cognitive needs: No Hearing needs: No Vision needs: No Questionnaire PHQ-9 Over the last 2 weeks, how often have you been bothered by any of the following problems? 1. Little interest or pleasure in doing things: not at all 2. Feeling down, depressed, or hopeless: not at all 3. Trouble falling or staying asleep, or sleeping too much: not at all 4. Feeling tired or having little energy: not at all 5. Poor appetite or overeating: not at all 6. Feeling bad about yourself - or that you are a failure or have let yourself or your family down: not at all 7. Trouble concentrating on things, such as reading the newspaper or watching television: not at all 8. Moving or speaking so slowly that other people could have noticed. Or the opposite - being so fidgety or restless that you have been moving around a lot more than usual: not at all 9. Thoughts that you would be better off or of hurting yourself in some way: not at all Total score: 0 [id number] - PHQ-9 Billing: Patient declined-do not bill Source: Developed by Drs. Donnie Sanchez, Josee Crisostomo, Jean Fernandez and colleagues, with an educational anamaria from [employer]. Thrive Questionnaire Date Thrive assessed: 02/02/25 I am a: Patient What is your living situation today?: I have a steady place to live Within the past 12 months, did the food you bought not last and you didn't have the money to get more?: Never true Within the past 12 months, did you worry whether your food would run out before you got money to buy more?: Never true Do you have trouble paying for medicines?: I choose not to answer this question Do you have trouble getting transportation to medical appointments?: No Do you have trouble paying your heating and electricity bill?: No Do you have trouble taking care of your child, family member or friend?: No Do you have trouble with day-to-day activities such as bathing, preparing meals, shopping, managing finances, etc.?: No Are you currently unemployed and looking for a job?: I choose not to answer this question Are you interested in more education?: I choose not to answer this question Please select the resources that you would like help with: None Currently or been in a relationship where the following occur: No concerns reported THRIVE Score: 0 KARINA-7 AMB Questionnaire KARINA-7 Date KARINA - 7 assessed: 07/30/25 Feeling nervous, anxious, or on edge: 0 = Not at all Not being able to stop or control worryin = Not at all Worrying too much about different things: 0 = Not at all Trouble relaxin = Not at all Being so restless that it is hard to sit still: 0 = Not at all Becoming easily annoyed or irritable: 0 = Not at all Feeling afraid as if something awful might happen: 0 = Not at all Total KARINA-7 score (0-4 normal; 5-9 mild; 10-14 moderate; 15-21 severe): 0 Source: Developed by Drs. Donnie Sanchez, Josee Crisostomo, Jean Fernandez and colleagues, with an educational anamaria from [employer]. KARINA-7 Assessment Billing KARINA-7 Assessment Tool: KARINA-7 Assessment 62216 Physical exam (Primary Care) Vital Signs: Last Vital Signs Pulse 84 07/30/25 12:26 Resp 16 07/30/25 12:26 BP 120/82 07/30/25 12:26 Pulse Ox 97 07/30/25 12:26 Oxygen Delivery Method Room Air 07/30/25 12:26 BMI result Body Mass Index 31.7 Tobacco/Smoking Status: Tobacco use Status Tobacco use date assessed 07/30/25 07/30/25 12:31 Patient Tobacco Use Status Never used Tobacco 07/30/25 12:28 e-Cigarette/Vaping Use Never Used 07/30/25 12:28 PHQ-9: PHQ-9 Score PHQ-9: Total score 0 07/30/25 12:31 Thrive Assessment: Date of Thrive Assessment Date Thrive assessed 02/02/25 07/30/25 12:28 Currently or been in a relationship where the following occur: No concerns reported Coding Level of Care Code Est Pt Prev Care 40-64y(79743) Diagnoses Physical exam Z00.00 B12 deficiency anemia D51.9 Additional Codes KARINA-7 Assessment Billing - KARINA-7 Assessment Tool: KARINA-7 Assessment 30049 ([id number]) Assessment & Plan Assessment & Plan (1) Physical exam: Code(s): Z00.00 - Encounter for general adult medical examination without abnormal findings Category: Medical (2) B12 deficiency anemia: Code(s): D51.9 - Vitamin B12 deficiency anemia, unspecified Category: Medical Plan . Orders: Orders Lipid Panel Today Z00.00 - Encounter for general adult medical examination without abnormal findings Complete Blood Count Auto Diff Today Z00.00 - Encounter for general adult medical examination without abnormal findings Comprehensive [place]. Panel Fast Today Z00.00 - Encounter for general adult medical examination without abnormal findings TSH reflex Free T4 Today Z00.00 - Encounter for general adult medical examination without abnormal findings UA CC w/rflx Micro + Cult Today Z00.00 - Encounter for general adult medical examination without abnormal findings Vitamin B12 and Folate Today D51.9 - Vitamin B12 deficiency anemia, unspecified
[2025-07-30 12:26] VITALS: BP 120/82; PULSE 84; RESP 16; O2SAT 97; BMI 31.7
== END 2025-07-30 12:51 | disposition home or self-care (01) ==
PROVIDERS: PCP Nurse Practitioner Family; Visit Provider Nurse Practitioner Family
DX: Z00.00 Encounter for general adult medical examination without abnormal findings (principal); D51.9 Vitamin B12 deficiency anemia, unspecified

== ENCOUNTER → 2025-07-30 12:22 | Outpatient (BNVA) | payer OTHER, SELFPAY | PROVIDERS: PCP Nurse Practitioner Family; Visit Provider Nurse Practitioner Family | DX: Z00.00 Encounter for general adult medical examination without abnormal findings (principal); D51.9 Vitamin B12 deficiency anemia, unspecified | CPT/HCPCS: 96127; 99396 ==

== ENCOUNTER 2025-09-03 08:30 | Outpatient (REF) | payer OTHER, SELFPAY ==
[2025-09-03 10:32] LABS: MANUAL DIFF FLAG NO
[2025-09-03 10:40] LABS: Hematocrit 47.1 % (42.0-52.0); Hemoglobin 16.4 g/dl (14.0-18.0); Imm Gran Abs Auto 0.01 X10*3/uL (0.00-0.03); Imm Gran Pct Auto 0.3 % (0.0-0.4); Lymphocytes Absolute Auto 2.0 X10*3/uL (1.2-4.9); Mean Corpuscular HGB Conc 34.8 g/dl (31.0-36.0); Mean Corpuscular Hemoglobin 29.4 pg (27.0-33.0); Mean Corpuscular Volume 84.4 fL (80.0-98.0); NRBC Abs Auto 0.000 X10*3/uL (0.0-0.012); NRBC Pct Auto 0.0 /100WBC (0.0-0.2); Platelet Count 217 X10*3/uL (160-400); Red Blood Count 5.58 X10*6/uL (4.60-5.80); White Blood Count 3.9 X10*3/uL (4.8-10.8)
[2025-09-03 11:01] LABS: Appearance Urine Clear; Glucose Urine UA Negative (Negative); PH 5.5 (5.0-9.0); Specific Gravity - Urine 1.020 (1.005-1.025)
[2025-09-03 12:12] LABS: Folate 5.0 ng/mL (> or = 4.0); Vitamin B12 202 pg/mL (200-900)
[2025-09-03 12:33] LABS: Alanine Aminotransferase 40 U/L (0-40); Albumin Level 4.8 g/dL (3.5-5.0); Alkaline Phosphatase 81 U/L (39-117); Anion Gap 11 (12-20); Aspartate Amino Transferase 39 U/L (5-37); Blood Urea Nitrogen 8 mg/dL (9-16); Calcium 9.0 mg/dL (8.4-10.2); Carbon Dioxide 25 mmol/L (22-29); Chloride 106 mmol/L (96-108); Cholesterol 178 mg/dL (<200); Estimated Glomerular Filt Rate > 60; HDL Cholesterol 23 mg/dL (>40); Potassium 4.3 mmol/L (3.3-5.1); Sodium 138 mmol/L (135-145); Total Protein 7.1 g/dL (6.5-8.0); Triglycerides 178 mg/dL (<150)
== END 2025-09-03 08:31 | disposition home or self-care (01) ==
LOC: HO.HMGCLDS 08:30
PROVIDERS: PCP Nurse Practitioner Family; Visit Provider Nurse Practitioner Family
DX: Z00.00 Encounter for general adult medical examination without abnormal findings (principal); D51.9 Vitamin B12 deficiency anemia, unspecified; R06.2 Wheezing; Z87.09 Personal history of other diseases of the respiratory system
CPT/HCPCS: 36415; 80053; 80061; 81003; 82607; 82746; 82785; 84443; 85025

== ENCOUNTER 2025-09-04 11:00 | Outpatient (REF) | payer OTHER, SELFPAY ==
[2025-09-04 14:28] LABS: MANUAL DIFF FLAG NO
[2025-09-04 14:39] LABS: Hematocrit 49.1 % (42.0-52.0); Hemoglobin 16.8 g/dl (14.0-18.0); Imm Gran Abs Auto 0.01 X10*3/uL (0.00-0.03); Imm Gran Pct Auto 0.2 % (0.0-0.4); Lymphocytes Absolute Auto 2.2 X10*3/uL (1.2-4.9); Mean Corpuscular HGB Conc 34.2 g/dl (31.0-36.0); Mean Corpuscular Hemoglobin 29.3 pg (27.0-33.0); Mean Corpuscular Volume 85.5 fL (80.0-98.0); NRBC Abs Auto 0.000 X10*3/uL (0.0-0.012); NRBC Pct Auto 0.0 /100WBC (0.0-0.2); Platelet Count 230 X10*3/uL (160-400); Red Blood Count 5.74 X10*6/uL (4.60-5.80); White Blood Count 4.1 X10*3/uL (4.8-10.8)
[2025-09-05 04:34] LABS: HBS Num1 0.90 mIU/mL (0-7.99); HBc Num1 0.06 S/CO (0.00-0.79); Hepatitis A Antibody IgM 0.22 Index (0-0.79); ~HepC Num1 0.12 S/CO (0.00-0.79); ~Hepatitis A Antibody IgM Nonreactive (Nonreactive); ~Hepatitis B Surface Antibody NONREACTIVE (Nonreactive); ~Hepatitis C Antibody Nonreactive (Nonreactive)
[2025-09-05 13:33] LABS: HBsAGNum1 0.29 S/CO (0.00-0.99); Hepatitis B Surface Antigen Negative (Negative)
== END 2025-09-04 11:01 | disposition home or self-care (01) ==
LOC: HO.HMGCLDS 11:00
PROVIDERS: PCP Nurse Practitioner Family; Visit Provider Nurse Practitioner Family
DX: E53.8 Deficiency of other specified B group vitamins (principal); D72.819 Decreased white blood cell count, unspecified; R74.8 Abnormal levels of other serum enzymes
CPT/HCPCS: 36415; 83516; 85025; 86340; 86704; 86706; 86709; 86803; 87340